=== PATIENT | male | born 1945 | race Caucasian/White ===

== ENCOUNTER 2020-07-28 09:14 | Outpatient (CLI) | payer MEDICARE | END 2020-07-28 09:15 | disposition home or self-care (01) | LOC: BICULT 09:14 | PROVIDERS: ATTEND Internal Medicine Nephrology | DX: N17.9 Acute kidney failure, unspecified (principal) | CPT/HCPCS: 76770 ==

== ENCOUNTER 2021-10-06 10:01 | Outpatient (CLI) | payer MEDICARE | END 2021-10-06 10:02 | disposition home or self-care (01) | LOC: BICMAMMO 10:01 | PROVIDERS: ATTEND Family Medicine | DX: Z13.820 Encounter for screening for osteoporosis (principal); M85.89 Other specified disorders of bone density and structure, multiple sites | CPT/HCPCS: 77080 ==

== ENCOUNTER 2022-07-06 11:39 | Outpatient (CLI) | payer MEDICARE | END 2022-07-06 11:40 | disposition home or self-care (01) | LOC: BICRAD 11:39 | PROVIDERS: ATTEND Family Medicine | DX: R05.9 Cough, unspecified (principal); J98.4 Other disorders of lung | CPT/HCPCS: 71046 ==

== ENCOUNTER 2024-11-01 13:30 | Outpatient (CLI) | payer OTHER | END 2024-11-01 13:31 | disposition home or self-care (01) | LOC: SCSRAD 13:30 | PROVIDERS: ATTEND Family Medicine | DX: R06.01 Orthopnea (principal); G47.9 Sleep disorder, unspecified; J90 Pleural effusion, not elsewhere classified; J98.11 Atelectasis; S22.009D Unspecified fracture of unspecified thoracic vertebra, subsequent encounter for fracture with routine healing; S32.009D Unspecified fracture of unspecified lumbar vertebra, subsequent encounter for fracture with routine healing | CPT/HCPCS: 36415; 71046; 80053; 83880; 84443; 85025 ==